=== PATIENT | male | born 1995 | race African-American/Black ===

== ENCOUNTER 2021-04-15 13:25 | Emergency (ER) | payer SELFPAY ==
[~2021-04-15] VITALS: Ht 175.3 cm; Wt 80.7 kg
[2021-04-15] MEDS ORDERED: KETOROLAC TROMETHAMINE 60 MG/2 ML VIAL IM ONE (13:45)
== END 2021-04-15 14:24 | disposition home or self-care (01) ==
LOC: FSED 13:30
DX: R07.89 Other chest pain (principal)
CPT/HCPCS: 93005; 99283